=== PATIENT | male | born 1985 | race Caucasian/White ===

== ENCOUNTER 2017-10-16 22:35 | Emergency (ER) | payer OTHER ==
[~2017-10-16] VITALS: Ht 177.8 cm; Wt 84.5 kg
[~2017-10-16 22:35] MED LIST: FIORICET WI1 CAPSULE PO; NOHOMEMEDS
[2017-10-17] MEDS ORDERED: FLEXERIL10 MG PO (01:49)
[2017-10-17] MEDS ORDERED: NORCO 5/3251 TABLET PO (01:49)
[2017-10-17 02:29] VITALS: BP 126/90
== END 2017-10-17 02:30 | disposition home or self-care (01) ==
LOC: EME 22:35
DX: S20.211A Contusion of right front wall of thorax, initial encounter (principal); S20.221A Contusion of right back wall of thorax, initial encounter; W50.0XXA Accidental hit or strike by another person, initial encounter; Y93.64 Activity, baseball
CPT/HCPCS: 71101; 99281; 99284